=== PATIENT | male | born 1970 | race Caucasian/White ===

== ENCOUNTER 2017-01-03 13:17 | Outpatient (CLI) | payer OTHER | END 2017-01-03 13:18 | disposition home or self-care (01) | LOC: SC 13:17 | PROVIDERS: ATTEND Internal Medicine Pulmonary Disease | DX: R06.83 Snoring (principal); R06.81 Apnea, not elsewhere classified; G47.10 Hypersomnia, unspecified; G31.84 Mild cognitive impairment of uncertain or unknown etiology | CPT/HCPCS: 99203; 99212 ==

== ENCOUNTER 2017-02-06 19:34 | Outpatient (CLI) | payer OTHER | END 2017-02-06 19:35 | disposition home or self-care (01) | LOC: SC 19:34 | PROVIDERS: ATTEND Internal Medicine Pulmonary Disease | DX: G47.09 Other insomnia (principal) | CPT/HCPCS: 95810 ==

== ENCOUNTER 2017-02-28 10:26 | Outpatient (CLI) | payer OTHER | END 2017-02-28 10:27 | disposition home or self-care (01) | LOC: SC 10:26 | PROVIDERS: ATTEND Internal Medicine Pulmonary Disease | DX: R06.83 Snoring (principal) | CPT/HCPCS: 99212; 99213 ==